=== PATIENT | female | born 2000 ===

== ENCOUNTER 2022-05-14 07:19 | Emergency (ER) | payer SELFPAY ==
[~2022-05-14] VITALS: Ht 162.6 cm; Wt 54.5 kg
[2022-05-14] MEDS ORDERED: LevETIRAcetam 1,000 MG in DEXTROSE 5%-WATER 100 ML IV ONE (07:30)
[2022-05-14] MEDS ORDERED: SODIUM CHLORIDE 0.9% 1,000 ML IV ONE (07:45)
[2022-05-14 08:09] LABS: BASOPHILS % (AUTO) 0.4 % (0.0-2.0); EOSINOPHILS % (AUTO) 0.1 % (1.0-6.0); HEMATOCRIT 40.4 % (36-46); HEMOGLOBIN 13.3 g/dL (12.0-16.0); LYMPHOCYTES # (AUTO) 0.9 K/uL (1.0-4.8); LYMPHOCYTES % (AUTO) 12.6 % (22.0-44.0); MEAN CORPUSCULAR HEMOGLOBIN 25.8 pg (26.0-34.0); MEAN CORPUSCULAR VOLUME 78 fL (80-100); MONOCYTES # (AUTO) 0.2 K/uL (0.1-1.0); MONOCYTES % (AUTO) 3.5 % (2.0-9.0); NEUTROPHILS % (AUTO) 83.4 % (40.0-70.0); PLATELET COUNT (AUTO) 390 K/uL (150-450); RED BLOOD CELL COUNT(AUTO) 5.17 MIL/uL (4.00-5.20); RED CELL DISTRIBUTION WIDTH 16.8 % (11.5-14.5)
[2022-05-14 08:14] LABS: ANION GAP 8 mmol/L (8-16); CALCIUM, TOTAL 10.3 mg/dL (8.8-10.5); CARBON DIOXIDE 28 mmol/L (22-29); CHLORIDE 102 mmol/L (98-107); CREATININE 0.87 mg/dL (0.60-1.30); GLUCOSE,RANDOM 127 mg/dL (70-110); POTASSIUM 4.4 mmol/L (3.5-5.1); SODIUM SERUM 138 mmol/L (136-145); UREA NITROGEN, BLOOD 17 mg/dL (7-18)
[2022-05-14 08:25] LABS: B-TYPE NATRIURETIC PEPTIDE 5 pg/mL (0-100)
[2022-05-14 08:26] LABS: GLOMERULAR FILTR. RATE CALC > 60 mL/min (>60)
[2022-05-14 08:39] LABS: ALANINE AMINOTRANSFERASE 14 U/L (12-78); ALBUMIN 4.6 g/dL (3.4-5.0); ALKALINE PHOSPHATASE 102 U/L (46-116); ASPARTATE AMINOTRANSFERASE 15 U/L (15-37); BILIRUBIN,TOTAL 0.6 mg/dL (0.1-1.0); CREATINE KINASE, TOTAL ONLY 101 U/L (26-192); HCG,QUANTITATIVE < 1 mIU/mL (0-6); TOTAL PROTEIN, SERUM 8.6 g/dL (6.4-8.2)
[2022-05-14 10:01] VITALS: BP 140/87
== END 2022-05-14 12:31 | disposition home or self-care (01) ==
LOC: EMS 07:24
DX: R56.9 Unspecified convulsions (principal); F11.20 Opioid dependence, uncomplicated
CPT/HCPCS: 99285; 96365; 70450; 80053; 82550; 83880; 84484; 84702; 85025; 36415; 93005; J0712; G0480; J7060; J7030

== ENCOUNTER 2022-05-17 09:24 | Inpatient (IN) | payer SELFPAY ==
[~2022-05-17] VITALS: Ht 162.6 cm; Wt 52.0 kg
[2022-05-17] MEDS ORDERED: LevETIRAcetam 1,000 MG in DEXTROSE 5%-WATER 100 ML IV ONE (09:45)
[2022-05-17] MEDS ORDERED: FLUV50 PO (10:16)
[2022-05-17] MEDS ORDERED: PRAZ1CAP5 PO (10:16)
[2022-05-17] MEDS ORDERED: LEVE100S7 PO (10:16)
[2022-05-17] MEDS ORDERED: MIRT-89 PO (10:16)
[2022-05-17] MEDS ORDERED: SUMA6CAR6 SQ (10:16)
[2022-05-17] MEDS ORDERED: SERT20OR6 PO (10:16)
[2022-05-17] MEDS ORDERED: NALO4SPR NASAL (10:16)
[2022-05-17 10:38] LABS: BASOPHILS % (AUTO) 1.3 % (0.0-2.0); EOSINOPHILS % (AUTO) 0.2 % (1.0-6.0); HEMATOCRIT 40.6 % (36-46); HEMOGLOBIN 13.2 g/dL (12.0-16.0); LYMPHOCYTES % (AUTO) 27.4 % (22.0-44.0); MEAN CORPUSCULAR HEMOGLOBIN 25.5 pg (26.0-34.0); MEAN CORPUSCULAR HGB CONC 32.4 G/dL (31.0-37.0); MEAN CORPUSCULAR VOLUME 79 fL (80-100); MONOCYTES # (AUTO) 0.3 K/uL (0.1-1.0); MONOCYTES % (AUTO) 7.8 % (2.0-9.0); NEUTROPHILS # (AUTO) 2.3 K/uL (1.8-7.7); NEUTROPHILS % (AUTO) 63.3 % (40.0-70.0); PLATELET COUNT (AUTO) 358 K/uL (150-450); RED BLOOD CELL COUNT(AUTO) 5.15 MIL/uL (4.00-5.20); RED CELL DISTRIBUTION WIDTH 16.7 % (11.5-14.5)
[2022-05-17 10:53] LABS: B-TYPE NATRIURETIC PEPTIDE 7 pg/mL (0-100)
[2022-05-17 10:59] LABS: ANION GAP 11 mmol/L (8-16); CALCIUM, TOTAL 9.4 mg/dL (8.8-10.5); CARBON DIOXIDE 27 mmol/L (22-29); CHLORIDE 106 mmol/L (98-107); CREATININE 0.78 mg/dL (0.60-1.30); GLUCOSE,RANDOM 117 mg/dL (70-110); POTASSIUM 3.7 mmol/L (3.5-5.1); SODIUM SERUM 144 mmol/L (136-145); UREA NITROGEN, BLOOD 17 mg/dL (7-18)
[2022-05-17 11:04] LABS: GLOMERULAR FILTR. RATE CALC > 60 mL/min (>60)
[2022-05-17 11:09] LABS: ALANINE AMINOTRANSFERASE 13 U/L (12-78); ALBUMIN 4.4 g/dL (3.4-5.0); ALKALINE PHOSPHATASE 91 U/L (46-116); ASPARTATE AMINOTRANSFERASE 15 U/L (15-37); BILIRUBIN,TOTAL 0.7 mg/dL (0.1-1.0); CREATINE KINASE, TOTAL ONLY 51 U/L (26-192); HCG,QUANTITATIVE 1 mIU/mL (0-6); TOTAL PROTEIN, SERUM 7.5 g/dL (6.4-8.2)
[2022-05-17 11:51] LABS: BILIRUBIN,URINE NEGATIVE (NEGATIVE); GLUCOSE, URINE (UA) NEGATIVE (NEGATIVE); KETONES,URINE NEGATIVE (NEGATIVE); LEUKOCYTE ESTERASE ,URINE MODERATE (NEGATIVE); NITRATE,URINE POSITIVE (NEGATIVE); OCCULT BLOOD,URINE NEGATIVE (NEGATIVE); PH,URINE 6.5 (5.0-8.0); PROTEIN,URINE NEGATIVE (NEGATIVE); SPECIFIC GRAVITIY, URINE 1.014 (1.003-1.030); UROBILINOGEN,URINE <=1.0 mg/dL (<=1.0)
[2022-05-17 11:57] LABS: AMPHET/METH SCREEN,URINE NEGATIVE (NEGATIVE); BARBITURATE SCREEN, URINE NEGATIVE (NEGATIVE); BENZODIAZEPINES SCREEN,URINE NEGATIVE (NEGATIVE); CANNABINOID SCREEN,URINE NEGATIVE (NEGATIVE); COCAINE SCREEN,URINE NEGATIVE (NEGATIVE); METHADONE SCREEN, URINE NEGATIVE (NEGATIVE); OPIATE SCREEN,URINE NEGATIVE (NEGATIVE)
[2022-05-17 11:58] LABS: PHENCYCLIDINE SCREEN,URINE NEGATIVE (NEGATIVE)
[2022-05-17 12:08] LABS: APPEARANCE,URINE HAZY (CLEAR)
[2022-05-17 12:09] LABS: BACTERIA,URINE Many /HPF (None Seen); RBC,URINE 0-2 /HPF (0-2)
[2022-05-17] MEDS ORDERED: LORazepam 1 MG TABLET PO ONE (12:45)
[2022-05-17] MEDS: CefTRIAXone 1 GM/DEXTROSE 50 ML IV SCH (12:50)
[2022-05-17 13:10] LABS: COVID AG,FIA SOURCE NASAL SWAB
[2022-05-17] MEDS ORDERED: 0.9% SODIUM CHLORIDE 10 ML SYRINGE IVP PRN (15:15)
[2022-05-17] MEDS ORDERED: ONDANSETRON HCL 4 MG/2 ML VIAL IVP PRN (15:15)
[2022-05-17] MEDS ORDERED: ACETAMINOPHEN 325 MG TABLET PO PRN (15:15)
[2022-05-17] MEDS: LORazepam 2 MG/ML VIAL IVP PRN (19:53)
[2022-05-17] MEDS: LevETIRAcetam 1,000 MG in DEXTROSE 5%-WATER 100 ML IV SCH (23:40)
[2022-05-18 03:40] VITALS: BP 135/87
[2022-05-18 07:43] VITALS: BP 163/85
[2022-05-18] MEDS ORDERED: SERT-162 PO (07:55)
[2022-05-18] MEDS ORDERED: FLUV50 PO (07:55)
[2022-05-18] MEDS ORDERED: LEVE500T20 PO (07:55)
[2022-05-18] MEDS ORDERED: LAMO100 PO (07:58)
[2022-05-18 08:01] LABS: BASOPHILS % (AUTO) 0.6 % (0.0-2.0); EOSINOPHILS % (AUTO) 0 % (1.0-6.0); HEMATOCRIT 37.1 % (36-46); HEMOGLOBIN 12.4 g/dL (12.0-16.0); LYMPHOCYTES # (AUTO) 0.6 K/uL (1.0-4.8); LYMPHOCYTES % (AUTO) 13.6 % (22.0-44.0); MEAN CORPUSCULAR HEMOGLOBIN 25.8 pg (26.0-34.0); MEAN CORPUSCULAR HGB CONC 33.3 G/dL (31.0-37.0); MEAN CORPUSCULAR VOLUME 77 fL (80-100); MONOCYTES # (AUTO) 0.2 K/uL (0.1-1.0); MONOCYTES % (AUTO) 4.7 % (2.0-9.0); NEUTROPHILS # (AUTO) 3.6 K/uL (1.8-7.7); NEUTROPHILS % (AUTO) 81.1 % (40.0-70.0); PLATELET COUNT (AUTO) 377 K/uL (150-450); RED BLOOD CELL COUNT(AUTO) 4.79 MIL/uL (4.00-5.20); RED CELL DISTRIBUTION WIDTH 16.7 % (11.5-14.5)
[2022-05-18 08:06] LABS: ALANINE AMINOTRANSFERASE 12 U/L (12-78); ALBUMIN 4.2 g/dL (3.4-5.0); ALKALINE PHOSPHATASE 88 U/L (46-116); ANION GAP 15 mmol/L (8-16); ASPARTATE AMINOTRANSFERASE 14 U/L (15-37); BILIRUBIN,TOTAL 0.6 mg/dL (0.1-1.0); CALCIUM, TOTAL 9.2 mg/dL (8.8-10.5); CARBON DIOXIDE 23 mmol/L (22-29); CHLORIDE 106 mmol/L (98-107); CREATININE 0.69 mg/dL (0.60-1.30); GLOMERULAR FILTR. RATE CALC > 60 mL/min (>60); GLUCOSE,RANDOM 112 mg/dL (70-110); POTASSIUM 3.6 mmol/L (3.5-5.1); SODIUM SERUM 144 mmol/L (136-145); TOTAL PROTEIN, SERUM 7.7 g/dL (6.4-8.2); UREA NITROGEN, BLOOD 13 mg/dL (7-18)
[2022-05-18] MEDS: LevETIRAcetam 1,000 MG in DEXTROSE 5%-WATER 100 ML IV SCH ×2 (09:56→21:17)
[2022-05-18] MEDS: LORazepam 2 MG/ML VIAL IVP PRN ×2 (11:08→17:03)
[2022-05-18] MEDS: CefTRIAXone 1 GM/DEXTROSE 50 ML IV SCH (11:59)
[2022-05-18 12:05] VITALS: BP 153/90
[2022-05-18 16:00] VITALS: BP 150/92
[2022-05-18 20:06] VITALS: BP 153/99
[2022-05-18] MEDS: MIRTAZAPINE 15 MG TABLET PO SCH (20:51)
[2022-05-18] MEDS: LamoTRIgine 100 MG TABLET PO SCH (20:51)
[2022-05-18 23:27] VITALS: BP 148/92
[2022-05-19] VITALS (7 sets, daily range): BP systolic 109–158; BP diastolic 68–89
[2022-05-19] MEDS: LORazepam 1 MG TABLET PO PRN ×2 (03:55→13:15)
[2022-05-19] MEDS: LamoTRIgine 100 MG TABLET PO SCH (10:13)
[2022-05-19] MEDS: LevETIRAcetam 1,000 MG in DEXTROSE 5%-WATER 100 ML IV SCH ×2 (10:13→22:55)
[2022-05-19] MEDS: LORazepam 2 MG/ML VIAL IVP PRN ×2 (11:22→16:21)
[2022-05-19] MEDS: CefTRIAXone 1 GM/DEXTROSE 50 ML IV SCH (13:15)
[2022-05-19] MEDS ORDERED: MAGNESIUM HYDROXIDE SUSPENSION 30 ML UDCUP PO PRN (14:00)
[2022-05-19] MEDS ORDERED: ACETAMINOPHEN 325 MG TABLET PO PRN (14:00)
[2022-05-19] MEDS ORDERED: LACOSAMIDE 200 MG in DEXTROSE 5%-WATER 100 ML IV ONE (20:45)
[2022-05-19] MEDS: MIRTAZAPINE 15 MG TABLET PO SCH (20:47)
[2022-05-19] MEDS ORDERED: LACOSAMIDE 100 MG TABLET PO SCH (21:00)
[2022-05-20] VITALS: BP 120/77
[2022-05-20] MEDS: LORazepam 2 MG/ML VIAL IVP PRN ×3 (01:25→19:45)
[2022-05-20] MEDS ORDERED: LevETIRAcetam 500 MG in DEXTROSE 5%-WATER 100 ML IV ONE (03:00)
[2022-05-20] MEDS ORDERED: LevETIRAcetam 1,000 MG in DEXTROSE 5%-WATER 100 ML IV ONE (03:30)
[2022-05-20 04:00] VITALS: BP 116/66
[2022-05-20] MEDS: LACOSAMIDE 100 MG TABLET PO SCH ×2 (07:59→20:34)
[2022-05-20] MEDS: FAMOTIDINE 20 MG TABLET PO SCH (08:00)
[2022-05-20] MEDS ORDERED: LevETIRAcetam 1,500 MG in DEXTROSE 5%-WATER 100 ML IV SCH (11:00)
[2022-05-20 11:57] VITALS: BP 134/75
[2022-05-20] MEDS: LEVETIRACETAM IV SCH ×2 (14:03→23:43)
[2022-05-20] MEDS: LORazepam 1 MG TABLET PO PRN (14:03)
[2022-05-20] MEDS: DEXTROSE 5% IV SCH ×2 (14:03→23:43)
[2022-05-20] MEDS: WATER IV SCH ×2 (14:03→23:43)
[2022-05-20] MEDS: CefTRIAXone 1 GM/DEXTROSE 50 ML IV SCH (15:26)
[2022-05-20 19:41] VITALS: BP 118/78
[2022-05-20] MEDS: MELATONIN 3 MG TABLET PO PRN (21:09)
[2022-05-20 23:42] VITALS: BP 145/85
[2022-05-21] MEDS: LORazepam 2 MG/ML VIAL IVP PRN (03:21)
[2022-05-21] MEDS ORDERED: PHENYTOIN SODIUM 500 MG in SODIUM CHLORIDE 0.9% 100 ML IV ONE (03:45)
[2022-05-21] MEDS ORDERED: SODIUM CHLORIDE 0.9% 250 ML IV ONE ×2 (04:02→11:32)
[2022-05-21] MEDS: LORazepam 1 MG TABLET PO PRN ×2 (04:24→23:51)
[2022-05-21 04:58] VITALS: BP 135/88
[2022-05-21 07:53] VITALS: BP 132/89
[2022-05-21] MEDS: FAMOTIDINE 20 MG TABLET PO SCH (08:19)
[2022-05-21] MEDS: LACOSAMIDE 100 MG TABLET PO SCH ×2 (08:19→20:13)
[2022-05-21] MEDS: PHENYTOIN 100 MG/4 ML SUSPENSION UDCUP PO SCH ×3 (08:19→20:13)
[2022-05-21] MEDS: CefTRIAXone 1 GM/DEXTROSE 50 ML IV SCH (11:38)
[2022-05-21] MEDS: DEXTROSE 5% IV SCH ×2 (12:13→23:52)
[2022-05-21] MEDS: LEVETIRACETAM IV SCH ×2 (12:13→23:52)
[2022-05-21] MEDS: WATER IV SCH ×2 (12:13→23:52)
[2022-05-21 15:11] VITALS: BP 130/86
[2022-05-21 17:58] VITALS: BP 105/58
[2022-05-21] MEDS ORDERED: IOHEXOL 350 MG/ML 100 ML VIAL ONE (18:50)
[2022-05-21] MEDS ORDERED: SODIUM CHLORIDE 0.9% 100 ML ONE (18:50)
[2022-05-21 19:45] VITALS: BP 128/85
[2022-05-21] MEDS: MELATONIN 3 MG TABLET PO PRN (23:51)
[2022-05-22 00:14] VITALS: BP 108/58
[2022-05-22 04:00] VITALS: BP 111/61
[2022-05-22] MEDS: LORazepam 2 MG/ML VIAL IVP PRN (06:45)
[2022-05-22 08:06] VITALS: BP 125/80
[2022-05-22] MEDS: PHENYTOIN 100 MG/4 ML SUSPENSION UDCUP PO SCH (09:19)
[2022-05-22] MEDS: LACOSAMIDE 100 MG TABLET PO SCH (09:19)
[2022-05-22] MEDS: FAMOTIDINE 20 MG TABLET PO SCH (09:19)
[2022-05-22] MEDS ORDERED: PHENY100 PO (11:13)
[2022-05-22] MEDS ORDERED: PRAZ2 PO (11:13)
[2022-05-22] MEDS ORDERED: MIRT-89 PO (11:13)
[2022-05-22] MEDS ORDERED: LEVE500T20 PO (11:13)
[2022-05-22] MEDS ORDERED: LACO100 PO (11:13)
[2022-05-22] MEDS: DEXTROSE 5% IV SCH (12:15)
[2022-05-22] MEDS: LEVETIRACETAM IV SCH (12:15)
[2022-05-22] MEDS: WATER IV SCH (12:15)
[2022-05-22 12:20] VITALS: BP 131/69
[2022-05-22] MEDS: CefTRIAXone 1 GM/DEXTROSE 50 ML IV SCH (13:24)
[2022-05-22] MEDS ORDERED: MIRTAZAPINE 15 MG TABLET PO SCH (21:00)
[2022-05-22] MEDS ORDERED: PRAZOSIN HCL 2 MG CAPSULE PO SCH (21:00)
== END 2022-05-22 15:30 | disposition home or self-care (01) | DRG 101 ==
LOC: EMS 09:26 → 5S 05-18 02:58
PROVIDERS: ADMIT Internal Medicine; ATTEND Internal Medicine
PROC: 4A00X4Z Measurement of Central Nervous Electrical Activity, External Approach (ICD-10-PCS; principal; 2022-05-21)
DX: G40.909 Epilepsy, unspecified, not intractable, without status epilepticus (principal); N39.0 Urinary tract infection, site not specified; F13.20 Sedative, hypnotic or anxiolytic dependence, uncomplicated; F17.210 Nicotine dependence, cigarettes, uncomplicated; F11.10 Opioid abuse, uncomplicated; F41.0 Panic disorder [episodic paroxysmal anxiety]; Z20.822 Contact with and (suspected) exposure to COVID-19; Z79.899 Other long term (current) drug therapy; Z91.013 Allergy to seafood
CPT/HCPCS: 70450; 70551; 71045; 80053; 80185; 81001; 82550; 83880; 84484; 84702; 85025; 87040; 87086; 87186; 93005; 95816; 99291; C9254; G0378; G0480; J0696; J0712; J1165; J2060; J2405; J7050; J7060; Q9967; 36415-L1; 36415-TC